=== PATIENT | male | born 1995 | race African-American/Black ===

== ENCOUNTER 2022-05-27 20:49 | Emergency (ER) | payer OTHER, SELFPAY ==
[~2022-05-27] VITALS: Ht 185.4 cm; Wt 79.5 kg
[2022-05-27] MEDS ORDERED: MORPHINE 4 MG/ML 1ML VIAL IV ONE ×2 (21:20→22:15)
[2022-05-27] MEDS ORDERED: ONDANSETRON 4MG 2ML VIAL IV ONE (21:20)
[2022-05-27] MEDS ORDERED: LIDOCAINE 4% CREAM 5GM (LMX4) TOP ONE (22:25)
[2022-05-28 01:05] VITALS: BP 121/59
[2022-05-28] MEDS ORDERED: HYDR-3713 PO (01:23)
[2022-05-28] MEDS ORDERED: NORCO 5/325MG TABLET (HOME DOSE PACK) PO ONE (01:35)
== END 2022-05-28 01:56 | disposition home or self-care (01) ==
LOC: M ED 20:49
DX: S00.12XA Contusion of left eyelid and periocular area, initial encounter (principal); S19.9XXA Unspecified injury of neck, initial encounter; S40.912A Unspecified superficial injury of left shoulder, initial encounter; H11.32 Conjunctival hemorrhage, left eye; Y08.02XA Assault by strike by baseball bat, initial encounter; Y92.009 Unspecified place in unspecified non-institutional (private) residence as the place of occurrence of the external cause
CPT/HCPCS: 12001; 70450; 70486; 72125; 73000; 73030; 73590; 96374; 96375; 99284; J2270; J2405

== ENCOUNTER 2022-06-15 12:55 | Emergency (ER) | payer OTHER ==
[~2022-06-15] VITALS: Ht 185.4 cm; Wt 76.0 kg
[2022-06-15 12:55] VITALS: BP 123/64
[~2022-06-15 12:55] MED LIST: HYDR-3713 PO
== END 2022-06-15 16:23 | disposition left against medical advice (07) ==
LOC: M ED 16:16
DX: Z53.21 Procedure and treatment not carried out due to patient leaving prior to being seen by health care provider (principal)

== ENCOUNTER 2022-06-27 16:01 | Emergency (ER) | payer OTHER ==
[~2022-06-27] VITALS: Ht 185.4 cm; Wt 74.4 kg
[2022-06-27 16:01] VITALS: BP 122/65
== END 2022-06-27 17:54 | disposition home or self-care (01) ==
LOC: M ED 16:01
DX: Z48.02 Encounter for removal of sutures (principal)

== ENCOUNTER 2022-11-21 14:19 | Emergency (ER) | payer OTHER, SELFPAY ==
[~2022-11-21] VITALS: Ht 185.4 cm; Wt 73.6 kg
[2022-11-21] MEDS ORDERED: IBUP200C25 PO (14:28)
[2022-11-21] MEDS ORDERED: NS 1,000 ML IV ONE (16:10)
[2022-11-21] MEDS ORDERED: METOCLOPRAMIDE INJ 10MG/2ML VIAL IV ONE (16:10)
[2022-11-21] MEDS ORDERED: ACETAMINOPHEN TAB 650MG DOSE (2X325MG) PO ONE (16:10)
[2022-11-21] MEDS ORDERED: KETOROLAC 30 MG/ML 1ML VIAL IV ONE (16:10)
[2022-11-21] MEDS ORDERED: TOPIRAMATE (TopAMAX) 25 MG TAB PO ONE (17:55)
[2022-11-21] MEDS ORDERED: IMIT50TA PO (17:57)
[2022-11-21] MEDS ORDERED: TOPI-254 PO (17:57)
[2022-11-21 18:14] VITALS: BP 111/68; TEMP 96.6; O2SAT 98
== END 2022-11-21 18:17 | disposition home or self-care (01) ==
LOC: M ED 14:19
DX: F07.81 Postconcussional syndrome (principal); G43.909 Migraine, unspecified, not intractable, without status migrainosus; F12.10 Cannabis abuse, uncomplicated; Z79.1 Long term (current) use of non-steroidal anti-inflammatories (NSAID); Z79.899 Other long term (current) drug therapy
CPT/HCPCS: 96361; 96374; 99284; J1885; J2765

== ENCOUNTER 2025-03-15 09:16 | Emergency (ER) | payer MEDICAID, OTHER, SELFPAY ==
[~2025-03-15] VITALS: Ht 185.4 cm; Wt 76.6 kg
[~2025-03-15 09:16] MED LIST changes: +IBUP200C25 PO; +IMIT50TA PO; +TOPI-21 PO
[2025-03-15] MEDS ORDERED: EXCETAB32 PO (09:28)
[2025-03-15] MEDS: SUMAtriptan SUCCINATE 50MG TABLET PO ONE (10:01)
[2025-03-15] MEDS: KETOROLAC 30 MG/ML 1 ML VIAL IM ONE (10:56)
[2025-03-15] MEDS ORDERED: KETO-204 PO (12:40)
[2025-03-15 12:49] VITALS: BP 132/77; TEMP 96.9; O2SAT 100
== END 2025-03-15 12:55 | disposition home or self-care (01) ==
LOC: M ED 09:16
DX: R51.9 Headache, unspecified (principal); Z79.1 Long term (current) use of non-steroidal anti-inflammatories (NSAID); Z79.899 Other long term (current) drug therapy
CPT/HCPCS: 96372; 99284; J1885

== ENCOUNTER 2025-03-18 08:52 | Emergency (ER) | payer OTHER ==
[~2025-03-18] VITALS: Ht 185.4 cm; Wt 77.3 kg
[~2025-03-18 08:52] MED LIST changes: +EXCETAB32 PO; +KETO-204 PO
[2025-03-18] MEDS ORDERED: DOXY100C3 (09:53)
[2025-03-18 11:22] LABS: BASO # 0.0 10^3/uL (0.0-0.2); BASO % 0.7 % (0.0-1.0); EOS # 0.1 10^3/uL (0.0-0.5); EOS % 2.0 % (0.0-3.0); LYMPH # 1.7 10^3/uL (1.5-5.0); LYMPH % 31.2 % (24.0-44.0); MONO # 0.5 10^3/uL (0.0-0.8); MONO % 9.0 % (2.0-8.0); NEUTROPHILS # 3.1 10^3/uL (1.5-8.5); NEUTROPHILS % 56.7 % (36.0-66.0); PLATELET COUNT, AUTOMATED 198 10^3/uL (150-450)
[2025-03-18] MEDS: NS (Normal Saline) 0.9% 1,000 ML IV ONE (11:25)
[2025-03-18 11:26] LABS: CALCIUM LEVEL 8.2 MG/DL (8.5-10.1); CARBON DIOXIDE LEVEL 27 MMOL/L (20-31); CHLORIDE LEVEL 108 MMOL/L (98-107); CREATININE FOR GFR 0.86 MG/DL (0.70-1.30); GLOMERULAR FILTRATION RATE > 90.0 (>60); POTASSIUM SERUM 4.0 MMOL/L (3.5-5.1); SODIUM LEVEL 142 MMOL/L (136-145)
[2025-03-18] MEDS: ACETAMINOPHEN *IV* 1,000 MG in IV 1 EA IV ONE (11:26)
[2025-03-18 13:20] VITALS: BP 127/70; TEMP 97.9; O2SAT 100
== END 2025-03-18 13:21 | disposition home or self-care (01) ==
LOC: M ED 08:52
DX: G43.909 Migraine, unspecified, not intractable, without status migrainosus (principal); F12.10 Cannabis abuse, uncomplicated; Z79.1 Long term (current) use of non-steroidal anti-inflammatories (NSAID); Z79.899 Other long term (current) drug therapy
CPT/HCPCS: 70450; 80048; 85025; 96365; 96366; 96375; 99284; J0131; J2765